=== PATIENT | male | born 1960 | race Caucasian/White ===

== ENCOUNTER 2016-12-15 18:09 | Outpatient (CLI) | payer SELFPAY | END 2016-12-15 18:10 | disposition EMS.NT | DX: M54.2 Cervicalgia (principal); V47.5XXA Car driver injured in collision with fixed or stationary object in traffic accident, initial encounter; Y92.414 Local residential or business street as the place of occurrence of the external cause ==

== ENCOUNTER 2017-01-13 17:01 | Outpatient (CLI) | payer SELFPAY | END 2017-01-13 17:02 | disposition critical access hospital (66) | DX: R07.9 Chest pain, unspecified (principal); M54.9 Dorsalgia, unspecified; L98.9 Disorder of the skin and subcutaneous tissue, unspecified | CPT/HCPCS: A0425; A0427 ==

== ENCOUNTER 2017-01-13 17:25 | Emergency (ER) | payer SELFPAY ==
--- NOTE | 2017-01-13 17:32 | ED Physician Documentation ---
PD HPI CHEST PAIN - Stated complaint Stated Complaint: CP - History obtained from History obtained from: Patient, EMS - History of Present Illness Timing - onset: Other (56-year-old gentleman with history of hepatitis C, and ongoing methamphetamine and heroin use, with last injection use of heroin just in the last few hours. Developed relatively sudden onset and worsening mid and upper back pain radiating straight through the chest, worse if he takes a deep breath over last few hours.) Review of Systems Ten Systems: 10 systems reviewed and negative Constitutional: denies: Fever, Chills GI: denies: Nausea, Vomiting, Diarrhea Skin: reports: Rash, Lesions Musculoskeletal: denies: Neck pain PD PAST MEDICAL HISTORY - Past Medical History Cardiovascular: Hypertension - Past Surgical History Past Surgical History: No - Present Medications Home Medications: Ambulatory Orders Medication Instructions Recorded Confirmed Omeprazole [PriLOSEC] 20 mg PO DAILY #14 capsule 01/13/17 - Allergies Allergies/Adverse Reactions: Allergies Allergy/AdvReac Type Severity Reaction Status Date / Time Penicillins Allergy Unknown Verified 01/13/17 17:26 - Social History Does the pt smoke?: Yes Smoking Status: Current every day smoker Does the pt drink ETOH?: Yes Does the pt have substance abuse?: Yes - Family History Family history: reports: Non contributory - Immunizations Immunizations are current?: No Immunizations: TDAP >10years/unknown - POLST Patient has POLST: No PD ED PE NORMAL - Vitals Vital signs reviewed: Yes - General General: Alert and oriented X 3, No acute distress - HEENT HEENT: PERRL, EOMI - Neck Neck: Supple, no meningeal sign, No bony TTP - Cardiac Cardiac: RRR (occasional extrasystole), No murmur - Respiratory Respiratory: No respiratory distress, Other (rhonchi at the bases) - Abdomen Abdomen: Soft, Non tender, No organomegaly, Other (thin) - Derm Derm: Normal color, Warm and dry - Extremities Extremities: Other (He has picked at lesions on the medial forearms and legs with leg edema. This is all from skin popping.) - Neuro Neuro: Alert and oriented X 3, Normal speech - Psych Psych: Normal mood, Normal affect Results - Vitals Vitals: Vital Signs - 24 hr 01/13/17 01/13/17 01/13/17 17:27 19:01 22:19 Temperature 98.6 C H Heart Rate 84 84 76 Respiratory 18 12 16 Rate Blood Pressure 129/84 H 116/61 116/76 O2 Saturation 100 100 Oxygen O2 Source Room air - EKG (time done) 1750 Rate: Rate (enter#) (74) Rhythm: NSR (with PVC) [place]: Normal Intervals: Normal AR Ischemia: Non specific changes. No: ST elevation c/w ischemia Computer interpretation: Agree with computer - Labs Labs: Laboratory Tests 01/13/17 01/13/17 01/13/17 17:58 17:58 17:58 WBC 7.6 RBC 4.44 L Hgb 8.4 L Hct 27.8 L MCV 62.8 L MCH 19.0 L MCHC 30.2 L RDW 20.9 H Plt Count 395 MPV 8.4 Neut # 6.2 Lymph # 0.5 L [place] # 0.6 Eos # 0.1 Baso # 0.1 Absolute Nucleated RBC 0.01 Nucleated RBCs 0.1 Manual Slide Review Indicated Platelet Estimate INCREASED (>450,000) RBC Morph Micro Appear 1+ ELIPTOCYTES Sodium 140 Potassium 4.1 Chloride 102 Carbon Dioxide 32 Anion Gap 6.0 BUN 17 Creatinine 0.6 Estimated GFR (MDRD) 139 Glucose 132 H Calcium 8.8 Total Bilirubin 0.5 AST 16 ALT 13 Alkaline Phosphatase 72 Troponin I < 0.04 Total Protein 6.6 L Albumin 3.3 Globulin 3.3 Albumin/Globulin Ratio 1.0 Lipase 22 Ethyl Alcohol < 5.0 01/13/17 20:45 WBC RBC Hgb Hct MCV MCH MCHC RDW Plt Count MPV Neut # Lymph # [place] # Eos # Baso # Absolute Nucleated RBC Nucleated RBCs Manual Slide Review Platelet Estimate RBC Morph Micro Appear Sodium Potassium Chloride Carbon Dioxide Anion Gap BUN Creatinine Estimated GFR (MDRD) Glucose Calcium Total Bilirubin AST ALT Alkaline Phosphatase Troponin I < 0.04 Total Protein Albumin Globulin Albumin/Globulin Ratio Lipase Ethyl Alcohol - Rads (name of study) CtA Chest Radiology: EMP read contemporaneously (Hiatal hernia with esophageal wall thickening, central lobular emphysema.) Procedures - General procedure General procedure: He was difficult for IV access, multiple nurses tried and failed. I personally placed a 20-gauge long IV in the right deep brachial vein using real-time option guidance which flushed and isadora well. PD MEDICAL DECISION MAKING - ED course ED course: 56-year-old gentleman with drug abuse problems presents with sudden onset back and chest pain which is concerning. For Dissection so sent for CT angios was negative for same but did show esophagitis. Pain went away pretty much on its own the GI cocktail was trialed. Repeat cardiac enzymes will be done. Repeat cardiac enzymes are still negative. The patient was counseled as to the diagnosis and need for followup. I counseled the patient with regard to signs and symptoms that would necessitate an urgent reevaluation in the emergency department. They understand they are welcome to return at any time if worse or if not improving as expected. This document was made in part using voice recognition software. While efforts are made to proofread this document, sound alike and grammatical errors may occur. Departure - Departure Disposition: 01 Home, Self Care Clinical Impression: Esophagitis Chest pain Qualifiers: Chest pain type: unspecified Qualified Code(s): R07.9 - Chest pain, unspecified Condition: Good Record reviewed to determine appropriate education?: Yes Instructions: ED Chest Pain NonCardiac Follow-Up: [facility] [Provider Group] Prescriptions: Omeprazole [PriLOSEC] 20 mg PO DAILY #14 capsule Comments: As discussed you need to followup upper endoscopy to evaluate your esophagus. Follow up with primary care for referral. Number on the form. Call Sunday for an appointment. Also discuss with them drug treatment.
[2017-01-13 18:19] LABS: BASOPHILS # (AUTO) 0.1 10^3/uL (0.0-0.1); BASOPHILS % (AUTO) 0.8 %; EOSINOPHILS # (AUTO) 0.1 10^3/uL (0.0-0.7); EOSINOPHILS % (AUTO) 1.8 %; HCT - HEMATOCRIT 27.8 % (42.0-52.0); HGB - HEMOGLOBIN 8.4 g/dL (14.0-18.0); LYMPHOCYTES # (AUTO) 0.5 10^3/uL (1.5-3.5); LYMPHOCYTES % (AUTO) 6.9 %; MEAN CORPUSCULAR HGB CONC 30.2 g/dL (32.0-36.0); MEAN CORPUSCULAR VOLUME 62.8 fL (80.0-94.0); MEAN PLATELET VOLUME 8.4 fL (7.4-11.4); MONOCYTES # (AUTO) 0.6 10^3/uL (0.0-1.0); MONOCYTES % (AUTO) 8.5 %; NEUTROPHILS # (AUTO) 6.2 10^3/uL (1.5-6.6); NUCLEATED RED BLOOD CELLS AUTO 0.1 /100WBC; RED BLOOD COUNT 4.44 10^6/uL (4.70-6.10); RED CELL DISTRIBUTION WIDTH 20.9 % (12.0-15.0); UNCORRECTED WHITE BLOOD COUNT 7.6 x10^3/uL; WHITE BLOOD COUNT 7.6 x10^3/uL (4.8-10.8)
[2017-01-13 18:21] LABS: BILIRUBIN,TOTAL 0.5 mg/dL (0.2-1.0); BUN - BLOOD UREA NITROGEN 17 mg/dL (6-20); CALCIUM 8.8 mg/dL (8.5-10.3); CARBON DIOXIDE - CO2 32 mmol/L (21-32); CHLORIDE 102 mmol/L (101-111); CREATININE 0.6 mg/dL (0.6-1.2); GFR - MDRD 139 (>89); GLUCOSE 132 mg/dL (70-100); LIPASE 22 U/L (22-51); POTASSIUM 4.1 mmol/L (3.5-5.0); SODIUM 140 mmol/L (135-145); TOTAL PROTEIN 6.6 g/dL (6.7-8.2)
[2017-01-13] MEDS ORDERED: IOPAMIDOL-300 100 ML VIAL IVP ONE (18:46)
[2017-01-13 18:52] LABS: PLATELET ESTIMATE, MANUAL INCREASED (>450,000) (NORMAL)
--- NOTE | 2017-01-13 19:17 | CT Preliminary Report ---
Exam: CT Chest Angio (AORTA) IMPRESSION: 1. Moderate-sized hiatal hernia with diffuse esophageal wall thickening suspicious for acute esophagi tis. Esophageal neoplasm not excluded. 2. No aneurysm or dissection of the thoracic aorta. 3. No pulmonary embolism. 4. Mild centrilobular emphysema with bilateral areas of peripheral pulmonary scarring. [facility] SITE ID: [id number]
--- NOTE | 2017-01-13 19:20 | CT Report ---
EXAM: CT ANGIOGRAM CHEST EXAM DATE: 01/13/2017 06:44 PM. CLINICAL HISTORY: Back pain to chest. COMPARISON: None. TECHNIQUE: Routine helical imaging was performed through the chest in the arterial phase. IV Contrast : 100 cc Isovue-300 IV. Reconstructions: Coronal 3-D MIP reconstructions.Sagittal and coronal. In accordance with CT protocol optimization, one or more of the following dose reduction techniques w ere utilized for this exam: automated exposure control, adjustment of mA and/or KV based on patient s ize, or use of iterative reconstructive technique. FINDINGS: Pulmonary Arteries: Diagnostic quality: Adequate through the segmental arteries. Negative for acute pulmonary embolism to the segmental level. There is mild calcified plaque in the thoracic aorta. No thoracic aortic aneurysm or dissection. Lungs/Pleura: There is subpleural linear density with architectural distortion in the right middle lo be and right lower lobe consistent with scarring or fibrosis. There is a linear band of atelectasis o r scar in the medial basal left lower lobe. There is a focal area of reticulation in the lateral righ t upper lobe. There is mild centrilobular emphysema. No consolidative pneumonia or pulmonary mass. Ne gative for pleural effusion and pneumothorax. Mediastinum: There is a moderate-sized hiatal hernia. There is diffuse esophageal wall thickening in the mid and lower chest. There is no pneumomediastinum. No mediastinal lymphadenopathy. The heart siz e is normal. There is no pericardial effusion. There is moderate multifocal coronary artery calcifica tion. Thoracic Aorta: No dissection. No mediastinal hemorrhage. Upper Abdomen: Unremarkable. Other: None. IMPRESSION: 1. Moderate-sized hiatal hernia with diffuse esophageal wall thickening suspicious for acute esophagi tis. Esophageal neoplasm not excluded. 2. No aneurysm or dissection of the thoracic aorta. 3. No pulmonary embolism. 4. Mild centrilobular emphysema with bilateral areas of peripheral pulmonary scarring. [facility] Referring Provider Line: [phone] SITE ID: [id number]
[2017-01-13] MEDS ORDERED: MAG HYDROX/AL HYDROX/SIMETH 30 ML UDC PO STA (19:28)
[2017-01-13] MEDS ORDERED: LIDOCAINE VISCOUS 2% 15 ML UDC MM STA (19:28)
[2017-01-13] MEDS ORDERED: LIDOCAINE VISCOUS 2% 15 ML UDC MM ONE (19:32)
[2017-01-13] MEDS ORDERED: MAG HYDROX/AL HYDROX/SIMETH 30 ML UDC ONE (19:32)
[2017-01-13 22:20] VITALS: BP 116/76
== END 2017-01-13 22:00 | disposition home or self-care (01) ==
LOC: ED 17:25
DX: K20.9 Esophagitis, unspecified (principal); R07.9 Chest pain, unspecified; K44.9 Diaphragmatic hernia without obstruction or gangrene; Z86.19 Personal history of other infectious and parasitic diseases; F15.10 Other stimulant abuse, uncomplicated; F11.10 Opioid abuse, uncomplicated
CPT/HCPCS: 71275; 80053; 80320; 83690; 84484; 85025; 93005; 93010; 99284; 99285